=== PATIENT | female | born 1960 | race Caucasian/White ===

== ENCOUNTER → 2019-05-29 | Outpatient (CLI) | payer OTHER, MEDICAID, SELFPAY | PROVIDERS: Family Provider Nurse Practitioner Family; PCP Nurse Practitioner Family; Visit Provider Specialist | DX: G24.3 Spasmodic torticollis (principal); G47.33 Obstructive sleep apnea (adult) (pediatric); G25.2 Other specified forms of tremor; F17.210 Nicotine dependence, cigarettes, uncomplicated ==

== ENCOUNTER → 2019-11-27 13:34 | Outpatient (BNVA) | payer MEDICARE, MEDICAID, SELFPAY | PROVIDERS: Family Provider Nurse Practitioner Family; PCP Nurse Practitioner Family; Visit Provider Specialist | DX: G25.2 Other specified forms of tremor (principal); G24.3 Spasmodic torticollis; Z87.891 Personal history of nicotine dependence | CPT/HCPCS: 64616; J0585 ==

== ENCOUNTER → 2020-03-04 14:01 | Outpatient (BNVA) | payer MEDICARE, MEDICAID, SELFPAY | PROVIDERS: Family Provider Nurse Practitioner Family; PCP Nurse Practitioner Family; Visit Provider Specialist | DX: M54.2 Cervicalgia (principal); G24.3 Spasmodic torticollis; G25.2 Other specified forms of tremor; Z79.891 Long term (current) use of opiate analgesic | CPT/HCPCS: 64642; 99214; J0585 ==

== ENCOUNTER → 2020-06-03 11:23 | Outpatient (BNVA) | payer MEDICARE, MEDICAID, SELFPAY | PROVIDERS: Family Provider Nurse Practitioner Family; PCP Nurse Practitioner Family; Visit Provider Specialist | DX: G24.3 Spasmodic torticollis (principal); G25.2 Other specified forms of tremor | CPT/HCPCS: 99213; J0585 ==

== ENCOUNTER → 2020-09-16 12:59 | Outpatient (BNVA) | payer MEDICARE, MEDICAID, SELFPAY | PROVIDERS: Family Provider Nurse Practitioner Family; PCP Nurse Practitioner Family; Visit Provider Specialist | DX: G24.3 Spasmodic torticollis (principal); Z87.891 Personal history of nicotine dependence | CPT/HCPCS: 64616; 99213; J0585 ==